=== PATIENT | male | born 1965 | race Caucasian/White ===

== ENCOUNTER 2018-03-14 10:05 | Day surgery (SDC) | END 2018-03-14 17:12 | disposition home or self-care (01) ==

== ENCOUNTER 2018-12-27 07:30 | Inpatient (IN) | payer OTHER ==
[~2018-12-27] VITALS: Ht 175.3 cm; Wt 99.2 kg
[~2018-12-27 07:30] MED LIST: LEVE100018 PO
[2019-03-04] MEDS ORDERED: ACETAMINOPHEN 500 MG TAB PO ONE (20:30)
[2019-03-05] VITALS (32 sets, daily range): BP systolic 103–125; BP diastolic 62–86; PULSE 64–82; RESP 15–37; Ht 175.3 cm; Wt 99.2 kg
[2019-03-05] MEDS ORDERED: CEFAZOLIN 2 GM/50 ML (PMX) 50 ML IVPB SCH (06:00)
[2019-03-05] MEDS ORDERED: ROCURONIUM 50 MG INJ ONE ×2 (07:00→07:25)
[2019-03-05] MEDS ORDERED: DESFLURANE 15 MIN ONE (07:00)
[2019-03-05] MEDS ORDERED: ACETAMINOPHEN 500 MG TAB PO ONE (07:00)
[2019-03-05] MEDS ORDERED: EPHEDrine SULFATE 50 MG/5 ML SYG ONE (07:00)
--- NOTE | 2019-03-05 07:09 | PREAC ---
Date/Time of Note Date/Time of Note DATE: 03/05/19 TIME: 07:08 Anesthesia Eval and Record Evaluation Time Pre-Procedure Interview DATE: 03/05/19 TIME: 07:08 Age 53 Sex male NPO: 8 hrs Preoperative diagnosis pain L ankle and joints Planned procedure toal Left ankle replacement w/ achilles tendon lengthening Past Medical History Past Medical History: Includes Neuro: Seizure disorder GI: Obesity Surgery & Anesthesia Issues No known issue Meds Anticoagulation: No Beta Keturah within 24 hr: No Reason Beta Keturah not given: Pt. not on B-Keturah Reported Medications Levetiracetam* (Keppra*) 1,000 Mg Tablet, 1000 MG PO BID, TAB 03/14/18 Current Medications Cefazolin Sodium/ Dextrose 50 ml @ 100 mls/hr PRE-OP IVPB ; Start 03/05/19 at 06:00; Stop 03/05/19 at 18:00 Meds reviewed: Yes Allergies Coded Allergies: No Known Allergy (Unverified , 03/14/18) Allergies Reviewed: Yes Labs/Studies Labs Reviewed: Reviewed by anesthesiologist test: N/A Studies: ECG (nml nsr), CXR Pre-procedure Exam Last vitals Vital Signs Date Temp Pulse Resp B/P (MAP) Pulse Ox O2 O2 Flow FiO2 Time Delivery Rate 03/05/19 97.6 07:06 03/05/19 68 18 109/69 95 06:00 (82) Airway: Adequate mouth opening, Adequate thyromental dist Mallampati: Mallampati II Teeth: Normal Lung: Normal Heart: Normal ASA Physical Status ASA physical status: 2 Emergency: None Planned Anesthetic General/MAC: ETT Pre-operative Attestations Prior to commencing anesthesia and surgery, the patient was re-evaluated, there was verification of: *The patient's identity *The results of appropriate recent lab work and preoperative vital signs *The above evaluation not changing prior to induction *Anesthetic plan, risk benefits, alternative and complications discussed with patient/family; questions answered; patient/family understands, accepts and wishes to proceed. SCOUT JOLLY Mar 05, 2019 07:09
[2019-03-05] MEDS ORDERED: PROPOFOL 40 ML ONE ×3 (07:24→10:04)
[2019-03-05] MEDS ORDERED: FENTAnyl 50 MCG/ML VIAL ONE ×2 (07:25→08:46)
[2019-03-05] MEDS ORDERED: MIDAZOLAM 1 MG/ML 2 ML INJ ONE (07:25)
[2019-03-05] MEDS ORDERED: CEFAZOLIN 1 GM INJ ONE (07:25)
[2019-03-05] MEDS ORDERED: ONDANSETRON 4 MG INJ ONE (07:25)
[2019-03-05] MEDS ORDERED: LIDOCAINE 2% (SDV) 5 ML INJ ONE (07:25)
[2019-03-05] MEDS ORDERED: FAMOTIDINE 20 MG INJ ONE (07:25)
[2019-03-05] MEDS ORDERED: PHENYLephrine 10 MG INJ ONE (07:26)
[2019-03-05] MEDS ORDERED: ALBUTEROL 0.083% (NEB) 2.5 MG/3 ML AMP HHN PRN (07:30)
[2019-03-05] MEDS ORDERED: ONDANSETRON 4 MG INJ IV PRN ×2 (07:30→12:30)
[2019-03-05] MEDS ORDERED: DIPHENHYDRAMINE 50 MG INJ IV PRN (07:30)
[2019-03-05] MEDS ORDERED: GABAPENTIN 300 MG CAP PO ONE (07:30)
[2019-03-05] MEDS ORDERED: HYDROmorphONE 1 MG/5 ML IV SYRINGE IV PRN ×3 (07:30)
[2019-03-05] MEDS ORDERED: LABETALOL HCL 20MG INJ IV PRN (07:30)
[2019-03-05] MEDS ORDERED: OXYCODONE/ACETAMINOPHEN (5/325) TAB PO PRN ×2 (07:30)
[2019-03-05] MEDS ORDERED: FENTAnyl 50 MCG/ML VIAL IV PRN ×2 (07:30)
[2019-03-05] MEDS ORDERED: morphine (1 MG/ML) 10ML SYRINGE IV PRN ×2 (07:30)
[2019-03-05] MEDS ORDERED: MEPERIDINE 25 MG INJ IV PRN (07:30)
[2019-03-05] MEDS ORDERED: POLYMYXIN/BACITRACIN 1L IRRIG IRR ONE (07:31)
--- NOTE | 2019-03-05 07:40 | HPN ---
Date/Time of Note Date/Time of Note DATE: 03/05/19 TIME: 07:39 Interval H&P Admission Note Pt. seen H&P reviewed: No system changes JASEN RODRÍGUEZ DPM Mar 05, 2019 07:39
[2019-03-05] MEDS ORDERED: LIDOCAINE 2% (MDV) 20 ML INJ ONE (08:06)
[2019-03-05] MEDS ORDERED: BUPIVACAINE 0.5% (SDV) 30 ML INJ ONE (08:06)
[2019-03-05] MEDS ORDERED: POLYMYXIN/BACITRACIN 1L IRRIG ONE (08:06)
[2019-03-05] MEDS ORDERED: TRANEXAMIC ACID 1GM/100ML(PMX) 100 ML ONE (08:31)
[2019-03-05] MEDS ORDERED: SUGAMMADEX SODIUM 200 MG/2 ML VIAL IV ONE (11:14)
--- NOTE | 2019-03-05 11:58 | PAC ---
Date/Time of Note Date/Time of Note DATE: 03/05/19 TIME: 11:56 Post-Anesthesia Notes Post-Anesthesia Note Last documented vital signs Vital Signs Date Temp Pulse Resp B/P (MAP) Pulse Ox O2 O2 Flow FiO2 Time Delivery Rate 03/05/19 97.9 97.9 80 16 1119/63 99 8L 8L face 11:52 114 mask 3 03/05/19 68 18 109/69 95 06:00 (82) Activity: WNL Respiratory function: WNL Cardiovascular function: WNL Mental status: Baseline Pain reasonably controlled: Yes Hydration appropriate: Yes Nausea/Vomiting absent: Yes SCOUT JOLLY Mar 05, 2019 11:57
--- NOTE | 2019-03-05 12:02 | SIPON ---
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 Grafts/Implants none Complications none JASEN RODRÍGUEZ DPM Mar 05, 2019 12:02
--- NOTE | 2019-03-05 12:02 | OPR ---
Date/Time of Note Date/Time of Note DATE: 03/05/19 TIME: 12:02 Operative Report Procedure Date: Mar 05, 2019 Preoperative Diagnosis Left ankle severe pain; chronic Left ankle degenerative joint disease Gait disturbance secondary to left ankle pain History of previous ankle fracture Postoperative Diagnosis Left ankle severe pain; chronic Left ankle degenerative joint disease Gait disturbance secondary to left ankle pain History of previous ankle fracture Operation/Procedure Performed Left ankle total ankle replacement Left Achilles tendon lengthening Left fibular nonunion fracture repair with open reduction and internal fixation Intraoperative use and interpretation of fluoroscopy Application of posterior splint left lower extremity 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 Patient complains that his normal activities are significantly affected by this pain. He reports that he has tried multiple treatment modalities both surgical and nonsurgical and has not been able to get pain relief. He reports pain with all types of activities and all types of shoes. He reports pain with movement of his ankle joint and with squeezing or moving the ankle joint. After extensive clinical and radiographic evaluation, my recommendation for the patient was total ankle replacement with repair of chronic nonhealing left fibular fracture. Risks and complications of this type of surgery was discussed with patient in great detail. The risks and complications discussed, include but are not limited to postoperative infection, postoperative pain, chronic pain and disability, gait disturbance, failure of implants, inability to ambulate properly, need for revision surgery, deep venous thrombosis, limb loss and loss of life. Patient acknowledges understanding of the discussion and agrees to the procedure. Informed consent was obtained, signed and placed in the chart. No guarantee or warranty was given or implied as to the outcome of the procedure either verbal or written form. Procedure Description The patient was seen in the preoperative area. Procedure was discussed in great detail. Opportunity was given to the patient asked questions and all questions were answered. Patient acknowledges understanding of the discussion and agrees with the procedure. Patient signed informed consent. Patient was then taken to the operating room and was placed on the operating table in the supine position. The patient was placed under general anesthesia by the anesthesiologist. A thigh tourniquet was applied to the left lower extremity. A 10 pound bag was placed under the ipsilateral hip to rotate the ankle up from a lateral position. Next, the left lower extremity was scrubbed, prepped and draped in the usual aseptic manner. The left lower extremity was exsanguinated using an Esmarch bandage and a thigh tourniquet was inflated to 300 mmHg pressure. Attention was directed to the anterior left ankle. Procedure #1: Left total ankle replacement Procedure #2: Left Achilles tendon lengthening Procedure #3: Left fibular fracture ORIF A 12 cm incision was made over the anterior aspect of the left ankle using a #10 blade. Extensive care was taken to identify vital neurovascular structures and tendinous structures as I was dissecting the using sharp and blunt dissection technique. The extensor retinaculum was first identified and transected. I identified the tibialis anterior tendon and the extensor digitorum tendon. I dissected between the 2 and located the neurovascular bundle. Vital structures were then carefully retracted and protected. Next, dissection was further deepened to the ankle joint. A pederson elevator was used to do periosteal dis section in the entire ankle joint was exposed anteriorly along with the medial lateral gutters. Next, dissection was then was made more distal exposing the talus and the talonavicular joint. There was significant osteophytic changes and degenerative changes noted in the ankle joint. Next, the cutting guide for the distal tibia was applied and secured using K wires. Positioning was confirmed using intraoperative fluoroscopy. Next, the guide was removed and the cutting guide was inserted. The distal tibia was then cut and the bone was removed passed to the back table. Next, the talus guide was inserted and secured with K wires. The guide was then removed and the cutting guide was inserted next. The talar cuts were made. Next, the medial lateral gutters were cleaned out using a rongeur. Once all the cuts were made and all the excessive bone was removed from the ankle joint. The wound was flushed with copious amounts of sterile normal saline. Intraoperative fluoroscopic guidance was used throughout in order to facilitate the procedure. Next, I proceeded to insert the component for the distal tibia. The tibial plate was inserted and proper markings were made. There were 3 holes that were made into the distal tibia according to the guide placement. This was done again using intraoperative fluoroscopy. The distal tibial plate was then inserted and malleted into place. Proper positioning was verified using intraoperative fluoroscopy. Next, the talar dome components was inserted according to the guidelines. The talar component was then malleted into the talus. Intraoperative fluoroscopy was used for guidance. I proceeded to size the poly spacer and a size 8 mm spacer was inserted. Range of motion was checked and was found to be 0 degrees ankle jermey siflexion. Next, attention was directed to the posterior aspect of the left ankle and Achilles tendon area. I made 3 stab incisions using a #11 blade, 2 incisions on the lateral; a proximal and distal segment along with a medial incision in the middle of the 2 segments. Next, I was able to increase the range of motion of the ankle joint to 5 to 10 degrees. Incisions were then f lushed with copious muscle sterile normal saline. Next, the anterior ankle incision was closed in layered fashion using 3-0 Vicryl, 4-0 Vicryl and 5-0 Monocryl. The joint capsule was closed using 3-0 Vicryl. The subcutaneous layer and the retinaculum was closed using 4-0 Vicryl and the skin was closed using 5-0 Monocryl in subcuticular stitch fashion. Next, griselda were used to close the incisions on the posterior lower leg. Attention was then directed to the lateral ankle area. Intraoperative fluoroscopy was used to identify the fracture site and the fibula. Nonunion was identified. A 6 cm linear incision was made on the lateral aspect of the left ankle. This was done using a #10 blade. Care was taken to identify and protect vital neurovascular structures. Dissection was then continued to the periosteal layer and the nonunion was found. The bone was removed around the nonunion site and the fracture was reduced and held in reduction. I inserted a lag screw across the fracture site and proceeded to apply a lateral fibular plate. Screws were inserted using lag technique and intraoperative fluoroscopic guidance. The wound was flushed with copious amounts of sterile normal saline. The subcutaneous layer was closed using 4-0 Vicryl suture and the skin was closed using griselda. This concluded procedures. The thigh tourniquet was deflated at this time and prompt hyperemic response was noted to the digits of the left lower extremity. Sterile dressing was applied to the left lower leg. Double posterior splints were applied to the left lower extremity. Patient will be getting a popliteal block by the anesthesiologist postoperatively. The patient tolerated the procedure and anesthesia well. He was transferred to the recovery room with vital signs stable and vascular status intact to the left lower extremity. The patient will be admitted to the hospital for postoperative pain management. Patient is to remain nonweightbearing on the left lower extremity. Patient will be followed in-house. JASEN RODRÍGUEZ DPM Mar 05, 2019 12:02
[2019-03-05] MEDS ORDERED: NACL 0.9% 3 ML SYG IV SCH (12:30)
[2019-03-05] MEDS ORDERED: LORAZEPAM 2 MG INJ IV PRN (18:00)
--- NOTE | 2019-03-05 18:11 | HP ---
Date/Time of Note Date/Time of Note DATE: 03/05/19 TIME: 18:10 Assessment/Plan VTE Prophylaxis Risk score (from Nsg)>0 risk: 12 SCD applied (from Nsg): Yes Pharmacological prophylaxis: other Lines/Catheters IV Catheter Type (from Nrsg): Peripheral IV Urinary Cath still in place: No Assessment/Plan Hospital Course Patient is a male with a past medical history significant for left ankle arthritis and is currently being admitted to [facility] after elective left ankle replacement, tendon lengthening and fibula fracture ORIF. Patient currently is doing well status post surgery and not complaining of significant pain. Patient will be monitored overnight to assess for additional pain management needs. Patient denies any chest pain, shortness of breath, nausea, vomiting, abdominal pain, headache. Patient has no other acute complaints at this time other than some mild surgical site pain Objective Physical exam General: Patient is laying in bed and answers questions appropriately Mentation: Patient is alert and oriented 4, Head: Normocephalic atraumatic Eyes: EOMI, pupils reactive to light Neck: Supple, nontender, midline Respiratory: Clear to auscultation bilaterally Cardiovascular: regular rate, no obvious murmurs Gastrointestinal: non-tender to palpation, bowel sounds heard. Neurological: Moves all extremities spontaneously Skin: Left ankle bandaged, CDI Assessment and plan Left ankle arthritis status post left ankle replacement, tendon lengthening of the Achilles heel, fibular fracture ORIF -Podiatry to manage -Assess for additional pain management needs -Pain meds as needed History of alcohol withdrawal seizure -Patient stated that he has not had seizures for quite some time however his primary care doctor wanted him to continue the Keppra -Continue Keppra -PRN Ativan for seizure. Disposition -Monitor overnight for pain management, likely discharge in 1-2 days depending on pain level with home and home health per patient's wishes. HPI/ROS Admit Date/Time Admit Date/Time Mar 05, 2019 at 05:55 PMH/Family/Social Past Medical History Medications Current Medications Enoxaparin Sodium (Lovenox) 40 mg DAILY@07 SC ; Start 03/06/19 at 07:00 IV Flush (NS 3 ml) 3 ml PER PROTOCOL IV ; Start 03/05/19 at 12:30 Ondansetron HCl (Zofran Inj) 4 mg Q6H PRN IV NAUSEA/VOMITING; Start 03/05/19 at 12:30 Acetaminophen (Tylenol Tab) 650 mg Q6H PRN PO .PAIN 1-3 OR TEMP; Start 03/05/19 at 12:30 Acetaminophen/ Hydrocodone Bitart ([place] (5/325)) 1 tab Q6H PRN PO .PAIN 4-6; Start 03/05/19 at 12:30 Morphine Sulfate (morphine) 2 mg Q4H PRN IV .PAIN 7-10; Start 03/05/19 at 12:30 Levetiracetam (Keppra) 1,000 mg BID PO ; Start 03/05/19 at 21:00 Coded Allergies: No Known Allergy (Unverified , 03/05/19) Social History Smoking Status: Never smoker Exam/Review of Systems Vital Signs Vitals Vital Signs Date Temp Pulse Resp B/P (MAP) Pulse Ox O2 O2 Flow FiO2 Time Delivery Rate 03/05/19 Nasal 2.0 13:30 Cannula 03/05/19 98.1 70 19 110/74 100 13:19 (86) LAUREN MERRITT Mar 05, 2019 18:10
[2019-03-05] MEDS: LEVETIRACETAM 500 MG TAB PO SCH (21:09)
[2019-03-06 00:04] VITALS: BP 106/55; PULSE 86; RESP 18
[2019-03-06] MEDS: HYDROCODONE/APAP (5/325) TAB PO PRN ×3 (03:20→16:18)
[2019-03-06] MEDS: morphine 2 MG INJ IV PRN ×3 (04:19→13:34)
[2019-03-06] MEDS: ACETAMINOPHEN 325 MG TAB PO PRN ×2 (06:14→15:00)
[2019-03-06] MEDS: ENOXAPARIN 40 MG/0.4 ML SYG SC SCH (06:17)
[2019-03-06 08:23] VITALS: BP 112/63; PULSE 72; RESP 18
[2019-03-06] MEDS: LEVETIRACETAM 500 MG TAB PO SCH ×2 (08:28→20:47)
[2019-03-06] MEDS ORDERED: HYDR-3601 PO (11:35)
--- NOTE | 2019-03-06 11:36 | PDOCDIS ---
Discharge Instructions CONDITION [id number] Patient Condition: [id number] Good HOME CARE INSTRUCTIONS: [id number] Diet Instructions: [id number] Regular ACTIVITY: [id number] Activity Restrictions: [id number] No Weight Bearing FOLLOW UP/APPOINTMENTS Follow-up Plan Dr Cortez 1 week pcp 1 week CARMEN HANSON MD Mar 06, 2019 11:36
[2019-03-06 15:02] VITALS: BP 114/76; PULSE 83; RESP 18
--- NOTE | 2019-03-06 15:50 | PN ---
Date/Time of Note Date/Time of Note DATE: 03/06/19 TIME: 15:50 Objective Vitals Vital Signs Date Temp Pulse Resp B/P (MAP) Pulse Ox O2 O2 Flow FiO2 Time Delivery Rate 03/06/19 98.5 72 18 112/63 97 Nasal 08:23 (79) Cannula 03/06/19 2.0 06:23 Intake and Output 03/05/19 03/05/19 03/06/19 1515:00 23:00 07:00 IntakeIntake Total 1800 ml 100 ml 800 ml OutputOutput Total 620 ml 1200 ml BalanceBalance 1180 ml 100 ml -400 ml Medications Medications Current Medications Enoxaparin Sodium (Lovenox) 40 mg DAILY@07 SC Last administered on 03/06/19at 06:17; Admin Dose 40 MG; Start 03/06/19 at 07:00 IV Flush (NS 3 ml) 3 ml PER PROTOCOL IV ; Start 03/05/19 at 12:30 Ondansetron HCl (Zofran Inj) 4 mg Q6H PRN IV NAUSEA/VOMITING; Start 03/05/19 at 12:30 Acetaminophen (Tylenol Tab) 650 mg Q6H PRN PO .PAIN 1-3 OR TEMP Last administered on 03/06/19at 15:00; Admin Dose 650 MG; Start 03/05/19 at 12:30 Acetaminophen/ Hydrocodone Bitart ([place] (5/325)) 1 tab Q6H PRN PO .PAIN 4-6 Last administered on 03/06/19 10:16; Admin Dose 1 TAB; Start 03/05/19 at 12:30 Morphine Sulfate (morphine) 2 mg Q4H PRN IV .PAIN 7-10 Last administered on 03/06/19 13:34; Admin Dose 2 MG; Start 03/05/19 at 12:30 Levetiracetam (Keppra) 1,000 mg BID PO Last administered on 03/06/19 08:28; Admin Dose 1,000 MG; Start 03/05/19 at 21:00 Lorazepam (Ativan) 2 mg Q10MIN PRN IV seizure; Start 03/05/19 at 18:00 VTE Prophylaxis Risk score (from Ns)>0 risk: 13 SCD applied (from Nsg): Yes Lines/Catheters IV Catheter Type: Pittman in Place: No Assessment/Plan Hospital Course Subjective Patient feeling better with mildly increased pain in his surgical site Objective Physical exam General: Patient is laying in bed and answers questions appropriately Mentation: Patient is alert and oriented 4, Head: Normocephalic atraumatic Eyes: EOMI, pupils reactive to light Neck: Supple, nontender, midline Respiratory: Clear to auscultation bilaterally Cardiovascular: regular rate, no obvious murmurs Gastrointestinal: non-tender to palpation, bowel sounds heard. Neurological: Moves all extremities spontaneously Skin: Left ankle bandaged, CDI Assessment and plan Left ankle arthritis status post left ankle replacement, tendon lengthening of the Achilles heel, fibular fracture ORIF -Podiatry to manage -Assess for additional pain management needs -Pain meds as needed History of alcohol withdrawal seizure -Patient stated that he has not had seizures for quite some time however his primary care doctor wanted him to continue the Keppra -Continue Keppra -PRN Ativan for seizure. Disposition -Patient doing well, continue with PT, if stable and pain is controlled, likely DC tomorrow with home health PT LAUREN MERRITT Mar 06, 2019 15:50
--- NOTE | 2019-03-06 16:14 | DS ---
DATE OF ADMISSION: 03/05/2019 DATE OF DISCHARGE: 03/06/2019 DISCHARGE DIAGNOSES: 1. Severe left ankle arthritis. 2. Status post left total ankle replacement. 3. Tendon lengthening of the Achilles heel. 4. ORIF of fibula fracture. HOSPITAL COURSE: A 53-year-old male was electively admitted by Dr. Rodríguez. He underwent left total ankle replacement and lengthening of Achilles tendon and fibula ORIF. There were no intraoperative o r postoperative complications. The patient is in a stable condition for discharge to home. He is go ing to be carrying a nonweightbearing status on left lower extremity. I prescribed [place] for pain co ntrol. Home health services were requested. The patient will follow up with PCP and Dr. Rodríguez as o utpatient. Dictated By: CARMEN MAN/NTS Conf#: [id number] DID#: [id number] CC: LAUREN MERRITT MD; JASEN RODRÍGUEZ DPM;*EndCC*
[2019-03-06] MEDS: HYDROCODONE/APAP (10/325) TAB GTB PRN ×2 (17:01→22:08)
[2019-03-06 20:11] VITALS: BP 111/68; PULSE 78; RESP 18
[2019-03-07 01:42] VITALS: BP 113/66; PULSE 77; RESP 18
[2019-03-07] MEDS: ENOXAPARIN 40 MG/0.4 ML SYG SC SCH (06:00)
[2019-03-07 07:46] VITALS: BP 112/65; PULSE 84; RESP 18
[2019-03-07] MEDS: LEVETIRACETAM 500 MG TAB PO SCH (07:51)
[2019-03-07] MEDS: HYDROCODONE/APAP (10/325) TAB GTB PRN ×2 (07:51→15:09)
[2019-03-07 14:00] VITALS: BP 122/68; PULSE 89; RESP 18
== END 2019-03-07 16:00 | disposition home health service (06) | DRG 469 ==
LOC: EDSTATUS 07:30 → REC 03-05 05:55 → MS1 03-05 13:20
PROVIDERS: ADMIT Podiatrist Foot & Ankle Surgery; ATTEND Podiatrist Foot & Ankle Surgery
PROC: 0QSK04Z Reposition Left Fibula with Internal Fixation Device, Open Approach (ICD-10-PCS; 2019-03-05)
PROC: 0L8P0ZZ Division of Left Lower Leg Tendon, Open Approach (ICD-10-PCS; 2019-03-05)
PROC: 0SRG0JZ Replacement of Left Ankle Joint with Synthetic Substitute, Open Approach (ICD-10-PCS; principal; 2019-03-05 07:30)
DX: M19.072 Primary osteoarthritis, left ankle and foot (principal); S82.402K Unspecified fracture of shaft of left fibula, subsequent encounter for closed fracture with nonunion; M67.02 Short Achilles tendon (acquired), left ankle; R26.9 Unspecified abnormalities of gait and mobility; G89.29 Other chronic pain
CPT/HCPCS: 73590; 73610; 80048; 83036; 83735; 84100; 85025; 88304; 88311; 97116; 97161; 97530; C1713; J0690; J1650; J2250; J2270; J2405; J3010